=== PATIENT | male | born 1945 | race Caucasian/White ===

== ENCOUNTER 2018-03-28 17:42 | Emergency (ER) | payer MEDICARE ==
[~2018-03-28] VITALS: Ht 170.2 cm; Wt 83.9 kg
--- NOTE | 2018-03-28 17:50 | NUR ---
BIB SELF W C/O RUE PAIN AND SWELLING x 2 DAYS. ALSO HTN 190'S SBP IN THE AM AT [facility], DENIES MOONEY AND BLURRED VISION. TO ER BED 10, HOOKED TO MONITOR, AWAITING MD RUIZ
--- NOTE | 2018-03-28 18:10 | NUR ---
HIDE STRETCHER HAND DEGRASSE AT BEDSIDE
--- NOTE | 2018-03-28 19:06 | NUR ---
ONGOING VENOUS DUPLEX RUE US
--- NOTE | 2018-03-28 19:20 | NUR ---
RECEIVED REPORT FROM YAMILA FORD FOR [facility]. DUPLEX STILL AT BEDSIDE. VITAL SIGNS STABLE. WILL CONTINUE TO MONITOR
--- NOTE | 2018-03-28 19:20 | NUR ---
REPORT GIVEN TO LORENE FORD FOR [facility]
[2018-03-28] MEDS ORDERED: HYDROCODONE/APAP 5/325MG 1 EACH TABLET ONE (19:41)
--- NOTE | 2018-03-28 19:54 | NUR ---
Patient discharged to home in stable condition. Written and verbal after care instructions given. Patient verbalizes understanding of instruction.Pt ambulatory with a steady gait. Instructed not to drive, left with friend
[2018-03-28 19:55] VITALS: BP 148/82
[2018-03-28] MEDS ORDERED: HYDROCODONE/APAP 5/325MG 1 EACH TABLET PO ONE (20:00)
== END 2018-03-28 19:56 | disposition home or self-care (01) ==
LOC: ER 17:45
DX: M79.89 Other specified soft tissue disorders (principal); I11.9 Hypertensive heart disease without heart failure; I21.9 Acute myocardial infarction, unspecified; E78.5 Hyperlipidemia, unspecified; Z95.5 Presence of coronary angioplasty implant and graft; Z85.89 Personal history of malignant neoplasm of other organs and systems; Z60.2 Problems related to living alone
CPT/HCPCS: 93971-TC